=== PATIENT | male | born 1980 | race Hispanic/Latino ===

== ENCOUNTER 2017-05-21 00:59 | Observation (INO) | payer BC ==
[~2017-05-21] VITALS: Ht 175.3 cm; Wt 109.2 kg
[~2017-05-21 00:59] MED LIST: HYDR-2132 PO; NAPR-1023 PO
[2017-05-21 01:30] LABS: BASOPHILS % (AUTO) 0.5 % (0.0-5.0); EOSINOPHILS % (AUTO) 0.1 % (0.0-8.0); HEMATOCRIT 43.7 % (42-54); LYMPHOCYTES % (AUTO) 25.6 % (21.0-51.0); MEAN CORPUSCULAR HEMOGLOBIN 30.3 pg (27.0-33.0); MEAN CORPUSCULAR HGB CONC 34.4 g/dL (32.0-36.0); MONOCYTES % (AUTO) 3.6 % (3.0-13.0); NEUTROPHILS % (AUTO) 70.2 % (40.0-77.0); PLATELET COUNT (AUTO) 321 K/uL (130-400); RED BLOOD CELL COUNT(AUTO) 4.97 MIL/uL (4.50-6.20); RED CELL DISTRIBUTION WIDTH 12.9 % (11.0-15.5); WHITE BLOOD COUNT (AUTO) 11.3 K/uL (4.8-10.8)
[2017-05-21 01:45] LABS: CREATININE 0.9 mg/dL (0.5-1.5); POTASSIUM 3.9 mmol/L (3.5-5.1)
[2017-05-21 01:48] LABS: BILIRUBIN,TOTAL 0.2 mg/dL (0.2-1.0); TOTAL PROTEIN, SERUM 7.9 g/dL (6.0-8.3)
[2017-05-21] MEDS ORDERED: SODIUM CHLORIDE 0.9% 1000ML 1,000 ML IV ONE ×3 (02:49→09:04)
[2017-05-21] MEDS ORDERED: ONDANSETRON HCL 4 MG/2 ML VIAL ONE ×2 (02:49→05:21)
[2017-05-21] MEDS ORDERED: MORPHINE SULFATE 4 MG/1ML SYG ONE ×2 (02:50→05:21)
[2017-05-21 05:02] LABS: APPEARANCE,URINE Clear (CLEAR); BILIRUBIN,URINE Negative (NEGATIVE); COLOR,URINE Yellow (YELLOW); GLUCOSE, URINE (UA) Negative (NEGATIVE); KETONES,URINE 40 mg/dL (NEGATIVE); LEUKOCYTE ESTERASE ,URINE Negative (NEGATIVE); NITRATE,URINE Negative (NEGATIVE); OCCULT BLOOD,URINE Negative (NEGATIVE); PH,URINE 7.5 (5.0-8.0); PROTEIN,URINE Trace (NEGATIVE); UROBILINOGEN,URINE 0.2 mg/dL (0.2-1.0)
[2017-05-21 05:08] LABS: BACTERIA,URINE Rare /HPF (None Seen); MUCUS,URINE Few LPF (None Seen); RBC,URINE None Seen /HPF (0-1); SQUAMOUS EPITHELIAL CELL,UR Moderate /LPF (0-2); WBC,URINE None Seen /HPF (0-1)
[2017-05-21] MEDS ORDERED: FAMOTIDINE/PF 20 MG/2 ML VIAL IV ONE ×2 (05:37→09:04)
[2017-05-21 06:00] LABS: CREATININE 0.9 mg/dL (0.5-1.5); POTASSIUM 3.8 mmol/L (3.5-5.1)
[2017-05-21] MEDS ORDERED: MEPERIDINE-PF 25 MG/ML SYG ONE ×2 (09:37→19:55)
[2017-05-21] MEDS ORDERED: ONDANSETRON HCL 4 MG/2 ML VIAL IV PRN (10:30)
[2017-05-21 10:47] LABS: AMPHET/METH SCREEN,URINE POSITIVE (NEGATIVE); BARBITURATE SCREEN, URINE NEGATIVE (NEGATIVE); BENZODIAZEPINES SCREEN,URINE NEGATIVE (NEGATIVE); CANNABINOID SCREEN,URINE NEGATIVE (NEGATIVE); COCAINE SCREEN,URINE POSITIVE (NEGATIVE); OPIATE SCREEN,URINE POSITIVE (NEGATIVE); PHENCYCLIDINE SCREEN,URINE NEGATIVE (NEGATIVE)
[2017-05-21 10:59] LABS: HEMOGLOBIN A1C 6.8 % (4.0-6.0)
[2017-05-21 12:51] VITALS: BP 112/69
[2017-05-21] MEDS ORDERED: MEPERIDINE HCL/PF 25 MG/0.5 ML AMPUL IVP PRN (14:00)
[2017-05-21] MEDS ORDERED: MEPERIDINE-PF 50 MG/ML SYG ONE (14:07)
[2017-05-21] MEDS: INSULIN HUMULIN R 100 UNIT/ML 3ML SQ SCH ×3 (14:12→21:00)
[2017-05-21] MEDS ORDERED: HYOS-28 PO (14:18)
[2017-05-21] MEDS ORDERED: TRAM50TA4 PO (14:18)
[2017-05-21] MEDS ORDERED: PANT40TA25 PO (14:18)
[2017-05-21] MEDS ORDERED: LISI10TA7 PO (14:18)
[2017-05-21] MEDS ORDERED: ATOR10TA69 PO (14:18)
[2017-05-21] MEDS ORDERED: METF500T6 PO (14:18)
[2017-05-21] MEDS ORDERED: ONDANSETRON HCL 4 MG/2 ML VIAL IVP PRN (14:30)
[2017-05-21] MEDS ORDERED: POTASSIUM CHLORIDE 10% ELIXIR 20 MEQ/15 ML UDCUP PO PRN (14:30)
[2017-05-21] MEDS ORDERED: CLONIDINE HCL 0.1 MG TABLET PO PRN (14:30)
[2017-05-21] MEDS ORDERED: POTASSIUM CHLORIDE 20 MEQ ERTAB PO PRN (14:30)
[2017-05-21] MEDS ORDERED: POTASSIUM CHLORIDE 20MEQ/100ML 100 ML IV PRN (14:30)
[2017-05-21] MEDS ORDERED: GLUCAGON 1MG KIT 1 MG ML IM PRN (14:30)
[2017-05-21] MEDS ORDERED: LIDOCAINE HCL-MPF 1% 2ML VIAL IJ PRN (14:30)
[2017-05-21] MEDS ORDERED: ACETAMINOPHEN 325 MG TAB PO PRN ×2 (14:30)
[2017-05-21] MEDS: SODIUM CHLORIDE 0.9% 1000ML 1,000 ML IV SCH (14:30)
[2017-05-21] MEDS ORDERED: DEXTROSE 50%-WATER 50 ML DISP.SYRIN IV PRN (14:30)
[2017-05-21 16:00] VITALS: BP 121/74
[2017-05-21] MEDS: INSULIN R NPO SS1 SQ SCH (17:15)
[2017-05-21 19:00] VITALS: BP 104/69
[2017-05-21] MEDS: MEPERIDINE HCL/PF 25 MG/ML 1ML VIAL IV PRN (20:07)
[2017-05-21] MEDS: FAMOTIDINE/PF 20 MG/2 ML VIAL IV SCH (20:07)
[2017-05-22] VITALS (7 sets, daily range): BP systolic 102–136; BP diastolic 66–78
[2017-05-22] MEDS ORDERED: MEPERIDINE-PF 25 MG/ML SYG ONE ×2 (00:14→17:12)
[2017-05-22] MEDS: MEPERIDINE HCL/PF 25 MG/ML 1ML VIAL IV PRN (00:18)
[2017-05-22] MEDS: INSULIN R NPO SS1 SQ SCH ×4 (06:00→17:15)
[2017-05-22] MEDS: INSULIN HUMULIN R 100 UNIT/ML 3ML SQ SCH ×4 (06:29→20:07)
[2017-05-22] MEDS: SODIUM CHLORIDE 0.9% 1000ML 1,000 ML IV SCH ×3 (06:30→17:18)
[2017-05-22 07:50] LABS: HEMATOCRIT 38.1 % (42-54); MEAN CORPUSCULAR HGB CONC 35.1 g/dL (32.0-36.0); MEAN CORPUSCULAR VOLUME 88.3 fL (79-99); PLATELET COUNT (AUTO) 250 K/uL (130-400); RED BLOOD CELL COUNT(AUTO) 4.31 MIL/uL (4.50-6.20); RED CELL DISTRIBUTION WIDTH 12.7 % (11.0-15.5); WHITE BLOOD COUNT (AUTO) 8.2 K/uL (4.8-10.8)
[2017-05-22 08:51] LABS: CREATININE 1.1 mg/dL (0.5-1.5)
[2017-05-22] MEDS: FAMOTIDINE/PF 20 MG/2 ML VIAL IV SCH ×2 (09:00→20:09)
[2017-05-22] MEDS ORDERED: MORPHINE SULFATE 2 MG/ML 1ML SYG IVP ONE (23:00)
[2017-05-23 04:35] VITALS: BP 100/47
[2017-05-23] MEDS: INSULIN HUMULIN R 100 UNIT/ML 3ML SQ SCH ×2 (06:33→13:16)
[2017-05-23 07:00] VITALS: BP 144/64
[2017-05-23] MEDS: FAMOTIDINE/PF 20 MG/2 ML VIAL IV SCH (08:41)
[2017-05-23 12:00] VITALS: BP 105/61
== END 2017-05-23 13:15 | disposition home or self-care (01) ==
LOC: EDH 00:59 → EDHIP 07:00 → 3AH 12:08
PROVIDERS: ADMIT Internal Medicine; ATTEND Internal Medicine
DX: R10.30 Lower abdominal pain, unspecified (principal); E11.9 Type 2 diabetes mellitus without complications; I10 Essential (primary) hypertension; E78.5 Hyperlipidemia, unspecified; K21.9 Gastro-esophageal reflux disease without esophagitis; F10.10 Alcohol abuse, uncomplicated; F17.200 Nicotine dependence, unspecified, uncomplicated
CPT/HCPCS: 36415 ×2; 74176; 76700; 80048 ×2; 80053; 80305; 81001; 82150; 82948 ×10; 83036; 83690; 85025; 85027; 86677; 96361 ×2; 96372; 96374; 96375 ×2; 96376 ×2; 99285; G0378 ×54; J1815 ×2; J2175 ×5; J2270 ×2; J2405 ×3; J3490 ×6; J7030 ×4

== ENCOUNTER 2024-07-12 19:26 | Emergency (ER) | payer BC ==
[~2024-07-12] VITALS: Ht 175.3 cm; Wt 104.3 kg
[~2024-07-12 19:26] MED LIST changes: +ALBUHFA IH; +ATOR10TA69 PO; +AZIT250T9 PO; -HYDR-2132 PO; +HYOS-16 SL; +LISI10TA24 PO; +METF500S9 PO; -NAPR-1023 PO; +NAPR-1194 PO; +PANT20TA18 PO; +PANT40TA54 PO
--- NOTE | 2024-07-12 19:48 | ERN ---
ED Note History of Present Illness Stated Complaint: RIGHT SIDE ABD PAIN Chief Complaint: Abdominal Pain Time Seen by MD: 19:39 Dictation: PATIENT IS A 44-YEAR-OLD MALE COMING IN TODAY WITH RIGHT UPPER QUADRANT PAIN NAUSEA STATES THE PAIN IS COLICKY AND ACHY ONSET 2-3 DAYS PRIOR TO ARRIVAL. STATES THE PAIN IS WORSE WITH FOOD. STATES HE STILL HAS A GALLBLADDER. STATES HE ATTEMPTED TO CALL HIS PRIMARY CARE DOCTOR HOWEVER [place]YSIC[place] AND WAS REFERRED TO THE EMERGENCY ROOM. NO CHEST PAIN NO BACK PAIN NO SOB. Allergies: Coded Allergies: No Known Drug Allergies (Verified Allergy, 03/20/12) Home Meds Active Scripts Azithromycin (Azithromycin) 250 Mg Tablet, 1 TAB PO AD for 5 Days, #6 TAB 0 Refills 2 the first day followed by 1 for days 2-5 Prov:CHUCK SORTO 07/10/24 Albuterol Sulfate (Ventolin Hfa/Proventil Hfa/Proair Hfa) 90 Mcg Puff, 2 PUFF IH Q4H for WHEEZING for 7 Days, #1 INHALER 0 Refills Prov:CHUCK SORTO 07/10/24 Reported Medications Lisinopril (Lisinopril) 10 Mg Tablet, 10 MG PO AM, TAB 12/08/18 Metformin HCl (Metformin HCl) 500 Mg/5 Ml Solution, 500 MG PO BID, ML 12/08/18 Naproxen (Naproxen) 500 Mg Tablet, 500 MG PO Q6HPRN PRN for PAIN LEVEL 6 TO 10, TAB 12/08/18 Atorvastatin Calcium (Atorvastatin Calcium) 10 Mg Tablet, 10 MG PO HS, TAB 12/08/18 Hyoscyamine Sulfate (Hyoscyamine Sulfate) 0.125 Mg Tab.subl, 0.125 MG SL AM PRN for PAIN LEVEL 1 TO 5, TAB.SL 12/08/18 Pantoprazole Sodium (Pantoprazole Sodium) 20 Mg Tablet.dr, 20 MG PO AM, TAB 12/08/18 Pantoprazole Sodium (Pantoprazole Sodium) 40 Mg Tablet.dr, 40 MG PO DAILY 05/21/17 Past Medical History Past Medical History: Diabetes-Type II Surgical History: Other Surgical History Other: RT SHOULDER SX RN Note Reviewed/Agreed w/PFSH: Yes Review of System Dictation CONSTITUTIONAL: NEGATIVE EXCEPT FOR HPI HEAD/FACE: NEGATIVE EXCEPT FOR HPI EENT: NEGATIVE EXCEPT FOR HPI RESPIRATORY: NEGATIVE EXCEPT FOR HPI GASTROINTESTINAL/ABDOMINAL: NEGATIVE EXCEPT FOR HPI RIGHT UPPER QUADRANT PAIN WITH NAUSEA GENITOURINARY: NEGATIVE EXCEPT FOR HPI MUSCULOSKELETAL: NEGATIVE EXCEPT FOR HPI INTEGUMENTARY: NEGATIVE EXCEPT FOR HPI NEUROLOGICAL/PSYCH: NEGATIVE EXCEPT FOR HPI HEMATOLOGIC/LYMPHATIC: NEGATIVE EXCEPT FOR HPI ALL SYSTEMS NEGATIVE, EXCEPT NOTED ABOVE. 13 POINT REVIEW OF SYSTEMS ASSESSED AND ALL NEGATIVE EXCEPT FOR ABOVE. Initial Vital Sign VS Vital Signs Date Time Temp Pulse Resp B/P (MAP) Pulse Ox O2 Delivery O2 Flow Rate FiO2 07/12/24 19:27 98.1 81 16 135/79 96 Room Air Physical Exam Dictation VITAL SIGNS REVIEWED GENERAL APPEARANCE: ALERT, ORIENTED X 3, SEVERE ACUTE DISTRESS, WELL DEVELOPED, NOURISHED. HEAD AND FACE: NON-TRAUMATIC. EYES: PERRL, PINK CONJUNCTIVAS, EYELID NO TRAUMA, ANTERIOR CHAMBER WITH ARCUS SENILIS. EARS: PINNAS INTACT AND NO SIGNS OF TRAUMA OR ERYTHEMA EAR CANALS CLEAR AND NO DISCHARGE TM NO ERYTHEMA NOSE: NO DISCHARGE, NO BLEEDING. OROPHARYNX: MOUTH NORMAL, TONGUE PINK, PHARYNX CLEAR,NO ERYTHEMA, TONSILS NO EXUDATES, NO ABSCESSES NOTED, MUCOUS MEMBRANE MOIST NECK: SUPPLE, NON-TENDER, NO THYROMEGALY, NO MASSES, NO JVD, NO BRUITS BREAST:DEFERRED CHEST:NO TENDERNESS, NO CREPITUS, NO PARADOXICAL MOVEMENT, NO RETRACTIONS LUNGS:CLEAR, WELL-VENTILATED, SYMMETRIC, NO RALES, NO WHEEZING, NO RHONCHI, NO STRIDOR, GOOD BREATH SOUNDS BILATERALLY HEART: REGULAR RATE, REGULAR RHYTHM, NO MURMUR, NO GALLOPS VASCULAR: NO PERIPHERAL EDEMA, ABDOMEN: SOFT, POSITIVE BOWEL SOUNDS, NONDISTENDED, NO GUARDING, POSITIVE BALDWIN'S SIGN. RECTAL: DEFERRED GENITAL: DEFERRED NEUROLOGICAL: NORMAL SPEECH, MOTOR FUNCTION INTACT, SENSORY FUNCTION INTACT MUSCULOSKELETAL: NECK NONTENDER, FULL RANGE OF MOTION, BACK NONTENDER, FULL RANGE OF MOTION, EXTREMITIES: NONTENDER, FULL RANGE OF MOTION SKIN: COLOR PINK, DRY, NO TURGOR, NO RASH, NO LACERATIONS, NO ABRASIONS, NO CONTUSIONS. LYMPHATIC: DEFERRED Results (Laboratory/Radiology) Laboratory/Radiology Laboratory Tests Test 07/12/24 20:38 07/12/24 21:27 White Blood Count 8.2 K/uL (4.8-10.8) Red Blood Count 5.28 MIL/uL (4.50-6.20) Hemoglobin 16.5 g/dL (14.0-18.0) Hematocrit 48.2 % (42-54) Mean Corpuscular Volume 91.3 fL (79-99) Mean Corpuscular Hemoglobin 31.3 pg (27.0-33.0) Mean Corpuscular Hemoglobin Concent 34.2 g/dL (32.0-36.0) Red Cell Distribution Width 12.8 % (11.0-15.5) Platelet Count 260 K/uL (130-400) Mean Platelet Volume 11.3 fL (7.5-10.5) H Immature Granulocyte % (Auto) 0.2 % (0-1) Neutrophils (%) (Auto) 53.9 % (40.0-77.0) Lymphocytes (%) (Auto) 37.7 % (21.0-51.0) Monocytes (%) (Auto) 5.5 % (3.0-13.0) Eosinophils (%) (Auto) 2.2 % (0.0-8.0) Basophils (%) (Auto) 0.5 % (0.0-5.0) Neutrophils # (Auto) 4.4 K/uL (1.8-7.7) Lymphocytes # (Auto) 3.1 K/uL (1.0-4.8) Monocytes # (Auto) 0.5 K/uL (0.1-1.0) Eosinophils # (Auto) 0.18 K/uL (0.00-0.70) Basophils # (Auto) 0.04 K/uL (0.00-0.20) Absolute Immature Granulocyte (auto 0.02 K/uL (0-1) Nucleated Red Blood Cells 0.0 % (0.0-0.19) Sodium Level 140 mmol/L (136-145) Potassium Level 3.6 mmol/L (3.5-5.1) Chloride Level 102 mmol/L (101-111) Carbon Dioxide Level 27 mmol/L (21-32) Blood Urea Nitrogen 13 mg/dL (7-18) Creatinine 1.0 mg/dL (0.5-1.3) Glomerular Filtration Rate Calc 95 mL/min (>90) Random Glucose 167 mg/dL (70-105) H Total Calcium 8.7 mg/dL (8.5-10.1) Lipase 40 U/L (16-77) Urine Color LIGHT-YELLOW (YELLOW) Urine Appearance CLEAR (CLEAR) Urine pH 5.5 (5.0-8.0) Urine Specific [place] 1.024 (1.001-1.031) Urine Protein NEGATIVE mg/dL (NEGATIVE) Urine Glucose (UA) NEGATIVE mg/dL (NEGATIVE) Urine Ketones NEGATIVE mg/dL (NEGATIVE) Urine Occult Blood NEGATIVE (NEGATIVE) Urine Nitrate NEGATIVE (NEGATIVE) Urine Bilirubin NEGATIVE mg/dL (NEGATIVE) Urine Urobilinogen 0.2 mg/dL (0.2-1.0) Urine Leukocyte Esterase NEGATIVE Philip/uL Urine RBC 0-1 /HPF (0-1) Urine WBC 2-5 /HPF (0-1) H Urine Bacteria None /HPF (None Seen) 2158/RIGHT UPPER QUADRANT ULTRASOUND DEMONSTRATES FATTY LIVER ONLY NO GALLBLADDER DISEASE NO STONES COMMON BILE DUCT NO PERICHOLECYSTIC FLUID. Labs Reviewed?: Yes ED Course ED Course Orders Procedure Category Date Status Time Cbc With Differential LAB 07/12/24 Complete 19:44 Urinalysis Profile LAB 07/12/24 Complete 19:44 Us Abdominal Ruq\Ltd US 07/12/24 Taken 19:44 0.9%Nacl 1000ml (Ns PHA 07/12/24 Complete 1000ml) 20:00 Ketorolac PHA 07/12/24 Complete Tromethamine 30mg/Ml 20:00 Lipase LAB 07/12/24 Complete 19:44 Basic Metabolic Panel LAB 07/12/24 Complete 19:44 Current Medications Medications (Trade) Dose Ordered Sig/Chris Route PRN Reason Start Time Stop Time Status Last Admin Dose Admin Ketorolac Tromethamine (toRADol) 30 mg ONCE ONCE IVP 07/12/24 20:00 07/12/24 20:01 DC 07/12/24 21:01 Sodium Chloride 1,000 ml @ 0 mls/hr ONCE ONCE IV 07/12/24 20:00 07/12/24 20:01 DC 07/12/24 21:00 Vital Signs Date Time Temp Pulse Resp B/P (MAP) Pulse Ox O2 Delivery O2 Flow Rate FiO2 07/12/24 19:27 98.1 81 16 135/79 96 Room Air 2155/PATIENT DISCHARGED HOME WITH DIAGNOSIS OF FATTY LIVER AND BILIARY COLIC SYMPTOMS. HE IS ON DIABETIC MEDICATION. HIS DOCTORS WEARS BLOOD SUGAR IS 167. GIVEN GUIDELINES ON A LOW-FAT DIET, STATES HE ATE [employer] THIS MORNING FOR LUNCH. ALL QUESTIONS ANSWERED WE WILL BE REFERRED TO DR. RAO JACKSON Medical Decision Making MDM MEDICAL DISCHARGE MAKING BASED ON ABDOMINAL LABS AND ULTRASOUND RIGHT UPPER QUADRANT LABS COMPLETELY UNREMARKABLE EXCEPT FOR BLOOD SUGAR 167 ULTRASOUND DEMONSTRATES FATTY LIVER PATIENT DISCHARGED HOME WITH PAIN MEDS AND DIRT DIETARY GUIDELINES GIVEN THE NAME OF DR. RAO JACKSON TO FOLLOW UP OUTPATIENT DX & DISP Disposition: Discharge Departure Impression: Primary Impression: Biliary colic symptom Additional Impression: Uncontrolled diabetes mellitus Condition: Stable Scripts Omeprazole (Omeprazole) 40 Mg Capsule. 1 CAP PO DAILY for 30 Days, #30 CAP 0 Refills Prov: SOWMYA RUSSELL NP 07/12/24 Dicyclomine HCl (Dicyclomine HCl) 20 Mg Tablet 20 MG PO Q6HPRN PRN for ABDOMINAL PAIN, #30 TAB Prov: SOWMYA RUSSELL PLEAT TAPER 07/12/24 Additional Instructions: FOLLOW-UP WITH PRIMARY CARE PROVIDER IN 1 TO 2 DAYS. TAKE MEDICATIONS DIRECTED HERE IN THE EMERGENCY ROOM. OKAY TO CONTINUE HOME MEDICATIONS UNLESS OTHERWISE DISCUSSED DURING YOUR VISIT IN THE EMERGENCY ROOM TODAY. RETURN TO YOUR NEAREST EMERGENCY ROOM IF SYMPTOMS WORSEN OR IF THERE IS NO IMPROVEMENT. CALL 911 IF YOU NEED IMMEDIATE ASSISTANCE. TAKE TYLENOL OR MOTRIN [id number] NEEDED AND IF NO CONTRAINDICATIONS ARE PRESENT. INCREASE ORAL HYDRATION. A WOUND CULTURE OR URINE CULTURE WAS ORDERED HERE IN THE EMERGENCY ROOM DEPARTMENT PLEASE FOLLOW-UP WITH PRIMARY CARE PROVIDER AND ADVISE THEM TO GET REPEAT PORTS FROM OUR FACILITY. IF YOU HAD ANY [place] WRAP/SPLINTS THAT WERE APPLIED HERE, PLEASE DO NOT REMOVE THEM UNTIL YOU SEE YOUR PRIMARY CARE OR SPECIALTY. FOLLOW A LOW-FAT DIET. WATER FOR FLUIDS ONLY. , NO SODA POP, NO ICE TEA, NO ALCOHOL NO SPICY FOODS AND EAT LOW-FAT FOODS ONLY UNTIL CLEARED BY YOUR PRIMARY CARE DOCTOR OR RAND BUTTING MACHINE OPERATOR NEXT WEEK. CALL FOR AN APPOINTMENT. TAKE OMEPRAZOLE DAILY DIRECTED Referrals: [facility] (PCP) RAO JACKSON MD Time of Disposition: 22:00 I have reviewed the case, and I agree with, Diagnosis and Plan SOWMYA RUSSELL NP Jul 12, 2024 19:48
[2024-07-12 20:45] LABS: BASOPHILS # (AUTO) 0.04 K/uL (0.00-0.20); BASOPHILS % (AUTO) 0.5 % (0.0-5.0); EOSINOPHILS # (AUTO) 0.18 K/uL (0.00-0.70); EOSINOPHILS % (AUTO) 2.2 % (0.0-8.0); HEMATOCRIT 48.2 % (42-54); IMMATURE GRANULOCYTE ABSOLUTE 0.02 K/uL (0-1); LYMPHOCYTES # (AUTO) 3.1 K/uL (1.0-4.8); LYMPHOCYTES % (AUTO) 37.7 % (21.0-51.0); MEAN CORPUSCULAR HEMOGLOBIN 31.3 pg (27.0-33.0); MEAN CORPUSCULAR HGB CONC 34.2 g/dL (32.0-36.0); MEAN CORPUSCULAR VOLUME 91.3 fL (79-99); MONOCYTES # (AUTO) 0.5 K/uL (0.1-1.0); MONOCYTES % (AUTO) 5.5 % (3.0-13.0); NEUTROPHILS # (AUTO) 4.4 K/uL (1.8-7.7); NEUTROPHILS % (AUTO) 53.9 % (40.0-77.0); PLATELET COUNT (AUTO) 260 K/uL (130-400); RED BLOOD CELL COUNT(AUTO) 5.28 MIL/uL (4.50-6.20); RED CELL DISTRIBUTION WIDTH 12.8 % (11.0-15.5); WHITE BLOOD COUNT (AUTO) 8.2 K/uL (4.8-10.8)
--- NOTE | 2024-07-12 20:50 | NUR ---
ASSUMED CARE AT THIS TIME PT AOX4
[2024-07-12 20:53] LABS: POTASSIUM 3.6 mmol/L (3.5-5.1)
[2024-07-12] MEDS: 0.9%NACL 1000ML 1,000 ML IV ONE (21:00)
[2024-07-12] MEDS: ketOROlac 30MG VIAL (30MG/ML) IVP ONE (21:01)
[2024-07-12 21:34] LABS: ADD UA MICROSCOPIC YES; APPEARANCE,URINE CLEAR (CLEAR); BILIRUBIN,URINE NEGATIVE (NEGATIVE); COLOR,URINE LIGHT-YELLOW (YELLOW); GLUCOSE, URINE (UA) NEGATIVE (NEGATIVE); KETONES,URINE NEGATIVE (NEGATIVE); LEUKOCYTE ESTERASE ,URINE NEGATIVE Leu/uL (NEGATIVE); NITRATE,URINE NEGATIVE (NEGATIVE); OCCULT BLOOD,URINE NEGATIVE (NEGATIVE); PH,URINE 5.5 (5.0-8.0); PROTEIN,URINE NEGATIVE (NEGATIVE); UROBILINOGEN,URINE 0.2 mg/dL (0.2-1.0)
[2024-07-12 21:37] LABS: MUCUS,URINE RARE LPF (None Seen); RBC,URINE 0-1 /HPF (0-1)
[2024-07-12] MEDS ORDERED: ketOROlac 30MG VIAL (30MG/ML) IVP ONE (22:00)
[2024-07-12] MEDS ORDERED: DICY20TA3 PO (22:02)
[2024-07-12] MEDS ORDERED: OMEP40CA21 PO (22:02)
--- NOTE | 2024-07-12 22:03 | HMCIMG ---
ULTRASOUND ABDOMEN LIMITED INDICATION: Right upper abdominal pain COMPARISON: None FINDINGS: The liver is enlarged and increased in echogenicity; no focal lesion demonstrated. Main portal vein is patent, and normal direction of vascular flow demonstrated. Liver length is measured at 18.5 cm. Suspect small amount of gallbladder sludge without intraluminal calculi or pericholecystic fluid. No sonographic Simpson's sign elicited by the ultrasound mud tank operator. Wall thickness measures 2.0 mm. Pancreas and common bile duct are obscured by overlying bowel gas. The right kidney measures 12.4 x 5.2 x 5.1 cm,and is normal in echogenicity, without evidence for hydronephrosis.No shadowing stones demonstrated. No free fluid demonstrated. IMPRESSION: Limitations as reported. Findings suggesting hepatomegaly and hepatic steatosis or other underlying hepatocellular disease process. Suspect small amount of gallbladder sludge without cholelithiasis or cholecystitis.
[2024-07-12] MEDS: HYDROcodone/APAP 5/325 1 TAB TABLET PO ONE (22:16)
[2024-07-12 22:31] VITALS: BP 132/76; PULSE 77; RESP 16; TEMP 98; O2SAT 97
== END 2024-07-12 22:38 | disposition home or self-care (01) ==
LOC: EDH 19:26
DX: K80.50 Calculus of bile duct without cholangitis or cholecystitis without obstruction (principal); E11.65 Type 2 diabetes mellitus with hyperglycemia; Z79.84 Long term (current) use of oral hypoglycemic drugs; Z79.899 Other long term (current) drug therapy; Z98.890 Other specified postprocedural states
CPT/HCPCS: 99284; 96374; 76705; 80048; 83690; 85025; 81001; 36415; J1885; J7030